=== PATIENT | female | born 1965 | race Caucasian/White ===

== ENCOUNTER 2023-02-03 13:47 | Inpatient (IN) | payer BC, OTHER ==
[~2023-02-03 13:47] MED LIST: CLINDAMYCIN 600 MG in DEXTROSE 5% IN WATER 50 ML IVPB SCH
--- NOTE | 2023-02-03 14:22 | ED ---
General Adult HPI - General Source: patient, RN notes reviewed Mode of arrival: ambulatory Limitations: no limitations <Tj Guerrero - Last Filed: 02/03/23 14:21> <Mauro Ta - Last Filed: 02/03/23 17:46> - General Stated complaint: swollen right side of lower jaw Time Seen by Provider: 02/03/23 14:21 - History of Present Illness Initial comments: 57-year-old female presents emergency Department chief complaint right-sided facial swelling, swelling in her submandibular region. She states has been increasing over the last several days. (Tj Guerrero) 7-year-old otherwise healthy female presenting to the ED with a chief complaint of facial swelling. Patient states approximately 2 weeks ago started to experience pain of her right lower face. States that she follow up with her dentist and was prescribed azithromycin. Despite taking this as prescribed, worsened symptoms and therefore presented to her dentist again who again prescribed her azithromycin. Despite 2 courses of azithromycin, patient reports increased redness, pain, swelling. Denies fever or chills. No chest pain or shortness of breath. No other complaints. (Mauro Ta) - Related Data Allergies Allergy/AdvReac Type Severity Reaction Status Date / Time Penicillins Allergy Rash/Hives Verified 02/03/23 14:11 Review of Systems ROS Other: All systems not noted in ROS Statement are negative. <Tj Guerrero - Last Filed: 02/03/23 14:21> ROS Other: All systems not noted in ROS Statement are negative. <Mauro Ta - Last Filed: 02/03/23 17:46> ROS Statement: Those systems with pertinent positive or pertinent negative responses have been documented in the HPI. Past Medical History Additional Past Medical History / Comment(s): DVT,PE,Migraine History of Any Multi-Drug Resistant Organisms: None Reported Past Surgical History: No Surgical Hx Reported Past Psychological History: No Psychological Hx Reported Smoking Status: Current every day smoker Past Alcohol Use History: None Reported Past Drug Use History: Marijuana <Tj Guerrero - Last Filed: 02/03/23 14:21> General Exam Limitations: no limitations <Tj Guerrero - Last Filed: 02/03/23 14:21> General appearance: alert, in no apparent distress ENT exam: Present: other (Warmth, erythema, edema, tenderness to palpation of the right face/cervical area. No stridor. Tolerating secretions.) Respiratory exam: Present: normal lung sounds bilaterally Cardiovascular Exam: Present: regular rate, normal rhythm GI/Abdominal exam: Present: soft Neurological exam: Present: alert, oriented X3 Skin exam: Present: warm, dry <Mauro Ta - Last Filed: 02/03/23 17:46> - General Exam Comments Initial Comments: Visual Physical Exam Vital signs reviewed General: Well-appearing, nontoxic, no acute distress. Head: Normocephalic, atraumatic Eyes: PERRLA, EOMI ENT: Airway patent right-sided facial swelling Chest: Nonlabored breathing Skin: No visual rash, normal skin tone Neuro: Alert and oriented 3 Musculoskeletal: No gross abnormalities (Tj Guerrero) Course Vital Signs 02/03/23 14:08 Temperature 98.8 F Pulse Rate 92 Respiratory 20 Rate Blood Pressure 150/86 O2 Sat by Pulse 99 Oximetry Medical Decision Making <Tj Guerrero - Last Filed: 02/03/23 14:21> - Lab Data Result diagrams: 02/03/23 14:35 02/03/23 14:35 <Mauro Ta - Last Filed: 02/03/23 17:46> - Medical Decision Making I completed the quick note portion of this chart signed Tj Guerrero PA-C (Tj Guerrero) Was pt. sent in by a medical professional or institution (LILLY Serra, SOCK LINING EXAMINER, urgent care, hospital, or care home...) When possible be specific @ -No Did you speak to anyone other than the patient for history (EMS, parent, family, police, friend...)? What history was obtained from this source @ -No Did you review nursing and triage notes (agree or disagree)? Why? @ -I reviewed and agree with nursing and triage notes Were old charts reviewed (outside hosp., previous admission, EMS record, old EKG, old radiological studies, urgent care reports/EKG's, care home records)? Report findings @ -No old charts were reviewed Differential Diagnosis (chest pain, altered mental status, abdominal pain women, abdominal pain men, vaginal bleeding, weakness, fever, dyspnea, syncope, headache, dizziness, GI bleed, back pain, seizure, CVA, palpatations, mental health, musculoskeletal)? @ -Fernie angina, ANUG, she'll cellulitis. This not meant to be an all- inclusive list. EKG interpreted by me (3pts min.). @ -None X-rays interpreted by me (1pt min.). @ -None done CT interpreted by me (1pt min.). @ -CT interpreted by me showing right-sided facial cellulitis with phlegmon. No definite abscess noted. U/S interpreted by me (1pt. min.). @ -None done What testing was considered but not performed or refused? (CT, X-rays, U/S, labs)? Why? @ -None What meds were considered but not given or refused? Why? @ -None Did you discuss the management of the patient with other professionals (professionals i.e. , PA, SOCK LINING EXAMINER, lab, RT, psych nurse, school social worker, bridge engineer, teacher, commissary officer, keycase assembler)? Give summary @ -Case discussed with Dr. Marrufo, who accepts admission and advised consult with OMFS. Case discussed with Dr. Negron, who is in agreement with plan of care. Kell sena will be out of town tomorrow and notes his partner will be able to take consult. Was smoking cessation discussed for >3mins.? @ -No Was critical care preformed (if so, how long)? @ -No Were there social determinants of health that impacted care today? How? (Homelessness, low income, unemployed, alcoholism, drug addiction, transportation, low edu. Level, literacy, decrease access to med. care, custodial, rehab)? @ -No Was there de-escalation of care discussed even if they declined (Discuss DNR or withdrawal of care, Hospice)? DNR status @ -No What co-morbidities impacted this encounter? (DM, HTN, Smoking, COPD, CAD, Cancer, CVA, ARF, Chemo, Hep., AIDS, mental health diagnosis, sleep apnea, morbid obesity)? @ -None Was patient admitted / discharged? Hospital course, mention meds given and route, prescriptions, significant lab abnormalities, going to OR and other pertinent info. @ -Admission 57-year-old female presents to the ED with complaints of facial swelling and pain. Laboratory studies significant for a white blood cell count of 15.4, neutrophils elevated at 11.6, chemistry panel unremarkable. CT did demonstrate a right facial cellulitis with phlegmon. Patient will be admitted for IV antibiotics with consult to OMFS and infectious disease. This time, vital signs stable with no evidence of sepsis. Plan of care discussed with patient who is in agreement. Undiagnosed new problem with uncertain prognosis? @ -No Drug Therapy requiring intensive monitoring for toxicity (Heparin, Nitro, Insu juan josé, Cardizem)? @ -No Were any procedures done? @ -No Diagnosis/symptom? @ -Facial cellulitis with phlegmon Acute, or Chronic, or Acute on Chronic? @ -Acute Uncomplicated (without systemic symptoms) or Complicated (systemic symptoms)? @ -Complicated Side effects of treatment? @ -No Exacerbation, Progression, or Severe Exacerbation? @ -No Poses a threat to life or bodily function? How? (Chest pain, [place], [place], pneumonia, PE, COPD, DKA, ARF, appy, cholecystitis, CVA, Diverticulitis, Homicidal, Suicidal, threat to staff... and all critical care pts) @ -Yes, facial cellulitis (Mauro Ta) - Lab Data Lab Results 02/03/23 02/03/23 Range/Units 14:35 14:35 WBC 15.4 H (3.8-10.6) k/uL RBC 4.78 (3.80-5.40) m/uL Hgb 14.1 (11.4-16.0) gm/dL Hct 42.3 (34.0-46.0) % MCV 88.4 (80.0-100.0) fL MCH 29.6 (25.0-35.0) pg MCHC 33.4 (31.0-37.0) g/dL RDW 13.2 (11.5-15.5) % Plt Count 336 (150-450) k/uL MPV 7.7 Neutrophils % 75 % Lymphocytes % 18 % Monocytes % 5 % Eosinophils % 1 % Basophils % 0 % Neutrophils # 11.6 H (1.3-7.7) k/uL Lymphocytes # 2.7 (1.0-4.8) k/uL Monocytes # 0.8 (0-1.0) k/uL Eosinophils # 0.2 (0-0.7) k/uL Basophils # 0.0 (0-0.2) k/uL Sodium 141 (137-145) mmol/L Potassium 3.8 (3.5-5.1) mmol/L Chloride 105 (98-107) mmol/L Carbon Dioxide 25 (22-30) mmol/L Anion Gap 11 mmol/L BUN 13 (7-17) mg/dL Creatinine 0.70 (0.52-1.04) mg/dL Est GFR (CKD-EPI)AfAm >90 (>60 ml/min/1.73 sqM) Est GFR (CKD-EPI)NonAf >90 (>60 ml/min/1.73 sqM) Glucose 117 H (74-99) mg/dL Calcium 9.6 (8.4-10.2) mg/dL Total Bilirubin 0.6 (0.2-1.3) mg/dL AST 30 (14-36) U/L ALT 31 (4-34) U/L Alkaline Phosphatase 81 (38-126) U/L Total Protein 7.3 (6.3-8.2) g/dL Albumin 4.2 (3.5-5.0) g/dL Disposition <Tj Guerrero - Last Filed: 02/03/23 14:21> Time of Disposition: 17:46 <Mauro Ta - Last Filed: 02/03/23 17:46> Clinical Impression: Facial cellulitis Disposition: ADMITTED IP TO THIS [facility] Condition: Good Referrals: Barbara He DO [Primary Care Provider] - 1-2 days
[2023-02-03 14:57] LABS: Basophils % (A) 0 %; Eosinophils # (A) 0.2 k/uL (0-0.7); Eosinophils % (A) 1 %; HCT 42.3 % (34.0-46.0); HGB 14.1 gm/dL (11.4-16.0); Lymphocytes # (A) 2.7 k/uL (1.0-4.8); Lymphocytes % (A) 18 %; MCH 29.6 pg (25.0-35.0); MCHC 33.4 g/dL (31.0-37.0); MCV 88.4 fL (80.0-100.0); Mean Platelet Volume 7.7; Monocytes # (A) 0.8 k/uL (0-1.0); Monocytes % (A) 5 %; Neutrophils # (A) 11.6 k/uL (1.3-7.7); Neutrophils % (A) 75 %; Platelet Count 336 k/uL (150-450); RBC 4.78 m/uL (3.80-5.40); RDW 13.2 % (11.5-15.5); WBC 15.4 k/uL (3.8-10.6)
[2023-02-03 15:09] LABS: ALT 31 U/L (4-34); African American GFR (CKD) >90 (>60 ml/min/1.73 sqM); Albumin 4.2 g/dL (3.5-5.0); Anion Gap 11 mmol/L; Blood Urea Nitrogen 13 mg/dL (7-17); Calcium 9.6 mg/dL (8.4-10.2); Carbon Dioxide 25 mmol/L (22-30); Chloride 105 mmol/L (98-107); Glucose 117 mg/dL (74-99); Non-African American GFR(CKD) >90 (>60 ml/min/1.73 sqM); Potassium 3.8 mmol/L (3.5-5.1); Sodium 141 mmol/L (137-145); Total Bilirubin 0.6 mg/dL (0.2-1.3); Total Protein 7.3 g/dL (6.3-8.2)
[2023-02-03 15:10] LABS: AST 30 U/L (14-36); Alkaline Phosphatase 81 U/L (38-126)
--- NOTE | 2023-02-03 15:37 | CT ---
EXAMINATION TYPE: CT soft tissue neck w con DATE OF EXAM: 02/03/2023 COMPARISON: None HISTORY: 57-year-old female with pain, infection, right lower jaw swelling and redness x2 weeks TECHNIQUE: Contiguous axial scanning of the soft tissues of the neck performed with IV Contrast, yissel ent injected with 100 mL of Isovue 300. Coronal/sagittal reconstructions performed. CT DLP: 398.1 mGycm Automated exposure control for dose reduction was used. FINDINGS: Marked soft tissue swelling overlying the right side of the anterior body of the mandible. There is o verlying low density collection measuring 2.7 cm wide by 1.0 cm thick by 1.9 cm craniocaudal. The patient is partially edentulous with dental amalgam and small dental caries scattered throughout but no large periapical lucency seen. Leftward nasal septal deviation. Orbits and globes are intact. Paranasal sinuses and mastoid air cells well pneumatized. Parotid gland, submandibular glands, and thyroid gland appear satisfactory. Mild to moderate bilateral lingual tonsillar hypertrophy. Additional moderate bilateral palatine tonsillar hypertrophy. Epiglottis and prevertebral soft tissues are satisfactory. Otherwise, glottic and subglottic structures as well as the tracheal column and visualized upper lung s are clear. Calcified granuloma right lung. Some asymmetrically larger right submandibular space lymph nodes measuring up to 9 mm some prominent right upper cervical lymph nodes measuring up to 1.3 cm. Bones: Status post C5-C6 ACDF. IMPRESSION: 1. PROMINENT SOFT TISSUE SWELLING OVERLYING THE RIGHT SIDE OF THE JAW WITH A POORLY DEFINED 2.7 X 1.0 X 1.9 CM LOW DENSITY COLLECTION OVERLYING THE ANTERIOR RIGHT BODY OF THE MANDIBLE SUGGESTIVE OF CELL ULITIS AND ASSOCIATED PHLEGMON. NO WELL-FORMED ABSCESS AT THIS TIME. 2. NO SIZABLE PERIAPICAL LUCENCY. THE PATIENT IS PARTIALLY EDENTULOUS WITH SCATTERED SMALL DENTAL CAR IES. 3. MODERATE HYPERTROPHY OF THE BILATERAL LINGUAL AND PALATINE TONSILS.
[2023-02-03] MEDS ORDERED: DEXAMETHASONE SOD PHOSPHATE 10 MG/ML 1 ML VIAL IVP STA (17:28)
[2023-02-03] MEDS ORDERED: KETOROLAC 15 MG/ML 1 ML VIAL IVP STA (17:28)
[2023-02-03] MEDS ORDERED: CLINDAMYCIN 600 MG in DEXTROSE 5% IN WATER 50 ML IVPB STA ×2 (17:30)
[2023-02-03] MEDS ORDERED: ACETAMINOPHEN TAB 325 MG TAB PO PRN (17:37)
[2023-02-03] MEDS ORDERED: NALOXONE 0.4 MG/ML 1 ML VIAL IV PRN (17:37)
[2023-02-03] MEDS ORDERED: ONDANSETRON 4 MG/2 ML VIAL IVP PRN (17:37)
[2023-02-03] MEDS ORDERED: NON FORMULARY DRUG (Ubrogepant [Ubrelvy] 100 MG Tablet) PO PRN (20:17)
[2023-02-03] MEDS ORDERED: SUMAtriptan succinate 50 MG TAB PO PRN (20:17)
[2023-02-03] MEDS: GABAPENTIN 300 MG CAP PO SCH (21:01)
[2023-02-03] MEDS: ALPRAZolam 0.25 MG TAB PO SCH (21:01)
[2023-02-03] MEDS: VENLAFAXINE HCL ER 75 MG CAP PO SCH (21:01)
[2023-02-03] MEDS: NAPROXEN 250 MG TAB PO SCH (21:02)
[2023-02-03] MEDS: AMITRIPTYLINE HCL 25 MG TAB PO SCH (21:02)
[2023-02-03] MEDS: PANTOPRAZOLE 40 MG TABLET PO SCH ×2 (21:02→21:04)
[2023-02-03] MEDS: ASPIRIN 81 MG PO SCH (21:02)
[2023-02-03] MEDS: HYDROmorphone 0.5 MG/0.5 ML SYRINGE IVP PRN (21:03)
[2023-02-03] MEDS: ENOXAPARIN 40 MG/0.4 ML SYRINGE SQ SCH (21:04)
[2023-02-03] MEDS: SODIUM CHLORIDE 0.9% 1,000 ML IV SCH (21:05)
[2023-02-03] MEDS: ATORVASTATIN 20 MG TAB PO SCH (21:05)
[2023-02-03] MEDS: NICOTINE 21MG/24HR PATCH TRANSDERM SCH (22:23)
[2023-02-04] MEDS: HYDROmorphone 1 MG/ML 1 ML SYRINGE IVP PRN ×5 (01:42→20:28)
[2023-02-04] MEDS: CLINDAMYCIN 600 MG in DEXTROSE 5% IN WATER 50 ML IVPB SCH ×4 (01:42→09:36)
[2023-02-04] MEDS: SODIUM CHLORIDE 0.9% 1,000 ML IV SCH ×3 (07:00→16:01)
[2023-02-04] MEDS: NAPROXEN 250 MG TAB PO SCH ×3 (08:30→22:03)
[2023-02-04] MEDS: ALPRAZolam 0.25 MG TAB PO SCH ×2 (08:30→22:03)
[2023-02-04] MEDS: ENOXAPARIN 40 MG/0.4 ML SYRINGE SQ SCH (08:33)
[2023-02-04] MEDS: NICOTINE 21MG/24HR PATCH TRANSDERM SCH (08:33)
[2023-02-04 11:00] LABS: Basophils # (A) 0.01 X 10*3/uL (0.00-0.10); Basophils % (A) 0.1 %; Eosinophils # (A) 0 X 10*3/uL (0.04-0.35); Eosinophils % (A) 0 %; HCT 42.2 % (37.2-46.3); HGB 13.8 d/dL (12.0-15.0); Lymphocytes # (A) 1.03 X 10*3/uL (0.90-5.00); Lymphocytes % (A) 7.9 %; MCHC 32.7 d/dL (32.0-37.0); MCV 88.7 FL (80.0-97.0); Mean Platelet Volume 9.8 FL (9.5-12.2); Monocytes # (A) 0.28 X 10*3/uL (0.20-1.00); Monocytes % (A) 2.2 %; NRBC Per 100 WBC 0 X 10*3/uL (0.00-0.01); Neutrophils # (A) 11.58 X 10*3/uL (1.80-7.70); Neutrophils % (A) 89.3 %; Platelet Count 350 X 10*3/uL (140-440); RBC 4.76 X 10*6/uL (4.10-5.20); RDW 13.2 % (11.5-14.5); WBC 12.96 X 10*3/uL (4.50-10.00)
[2023-02-04] MEDS ORDERED: CALCIUM CARBONATE 500 MG CHEWABLE PO PRN (12:10)
[2023-02-04] MEDS ORDERED: LACTULOSE 20 GM/30 ML CUP PO PRN (12:10)
[2023-02-04] MEDS ORDERED: NICOTINE 21MG/24HR PATCH TRANSDERM SCH (12:15)
[2023-02-04] MEDS ORDERED: CLINDAMYCIN 900 MG in DEXTROSE 5% IN WATER 50 ML IVPB SCH ×2 (13:00)
[2023-02-04] MEDS: CLINDAMYCIN 900 MG in DEXTROSE 5% IN WATER 50 ML IVPB SCH ×2 (13:43)
--- NOTE | 2023-02-04 18:13 | P.HPIM ---
History of Present Illness H&P Date: 02/04/23 Chief Complaint: Right facial swelling Pleasant 57-year-old patient who follows with Dr. Barbara He. Chronic stable medical conditions include depression, GERD, chronic neck pain, insomnia, hyperlipidemia, migraines. Prior pulmonary embolism, finished a course of eliquis. On aspirin A 2 weeks ago and started noticing swelling on the right side of the face around the jawline. Progressively became worse. Went to see her dentist. Was given a Z-Daryn. Did not improve. Went back again was again given a Z-Daryn. Then she went to see maxillofacial surgeon yesterday. Was sent into the ER. Denies any fever and chills. Was having some trouble eating. ID and maxillofacial surgery surgery was consulted from the ER. Started on IV clindamycin. This morning some improvement in his swelling. Patient does request regular food. Review of systems: GEN.: Tired EYES: None HEENT: None NECK: As above RESPIRATORY: None CARDIOVASCULAR: None GASTROINTESTINAL: None GENITOURINARY: None MUSCULOSKELETAL: None LYMPHATICS: None HEMATOLOGICAL: None PSYCHIATRY: None NEUROLOGICAL: Chronic back pain, with slight weakness of the right arm following surgery Past medical history to include: Depression, GERD, chronic neck pain with prior surgery, insomnia, hyperlipidemia, migraines, pulmonary embolism currently on aspirin with a prior course of eliquis. Social history: Works at the [employer]. Lives alone. No alcohol. Smokes a pack a day for last 40 years. Physical examination: VITAL SIGNS: 98.8, 92, 20, 129/85, 97% room air GENERAL: BMI 74.1, declining with awake not in distress. EYES: Pupils equal. Conjunctiva normal. HEENT: External appearance of nose and ears normal, oral cavity grossly normal. Swelling around the right to in the submandibular area. Tender. NECK: JVD not raised; masses not palpable. HEART: First and second heart sounds are normal; no edema. LUNGS: Respiratory rate normal; decreased breath sounds. ABDOMEN: Soft, nontender, liver spleen not palpable, no masses palpable. PSYCH: Alert and oriented x3; mood and affect normal. MUSCULOSKELETAL:No Clubbing/cyanosis;muscles-grossly intact NEUROLOGICAL: Cranial nerves grossly intact; no facial asymmetry, power and sensation grossly intact. LYMPHATICS: No lymph nodes palpable in the axilla and neck INVESTIGATIONS, reviewed in the clinical context: February 04: White count 12.9 hemoglobin 13.8 platelets 350 February 03: White count 15.4 hemoglobin 14.1. History 36 potassium 3.8 creatinine 0.[address]: Soft tissue swelling overlying the right side of the jaw with a poorly defined 2.7 x 1 cm x 1.9 cm low density collection overlying the anterior right body of the mandible with cellulitis and phlegmon. Scattered small dental kidney disease. Moderate hypertrophic the bilateral leg: [place] tonsils. Assessment and plan: -Cellulitis and phlegmon to the anterior part of the right mandible. Patient has failed outpatient treatment with Z-Daryn 2 courses. Also is affecting patient is eating. ID and maxillofacial surgery surgery consulted. IV clindamycin IV ceftriaxone. Soft diet -COPD in a current smoker Albuterol when necessary -Chronic nicotine dependence, cigarette smoker Nicotine patch. -Depression otherwise specified Effexor XL 25 mg by mouth daily at bedtime -GERD PPI -Chronic neck pain from prior cervical spine surgery and neck injections. Tylenol 3. Neurontin. -Hyperlipidemia Lipitor 20 mg -Migraines Imitrex when necessary.ubrelvy, when necessary Soft diet. IV clindamycin IV ceftriaxone. Follow with consultants. Past Medical History Additional Past Medical History / Comment(s): DVT,PE,Migraine History of Any Multi-Drug Resistant Organisms: None Reported Past Surgical History: No Surgical Hx Reported Past Psychological History: No Psychological Hx Reported Smoking Status: Current every day smoker Past Alcohol Use History: None Reported Past Drug Use History: Marijuana Medications and Allergies Home Medications Medication Instructions Recorded Confirmed Type ALPRAZolam [Xanax] 0.25 mg PO BID 02/03/23 02/03/23 History Acetaminophen Tab [Tylenol Tab] 500 mg PO Q6HR PRN 02/03/23 02/03/23 History Acetaminophen-Codeine 300-30mg 1 tab PO Q6H PRN 02/03/23 02/03/23 History [Tylenol w/codeine #3] Amitriptyline HCl [Elavil] 75 mg PO HS 02/03/23 02/03/23 History Aspirin EC [Ecotrin Low Dose] 81 mg PO HS 02/03/23 02/03/23 History Atorvastatin [Lipitor] 20 mg PO HS 02/03/23 02/03/23 History Gabapentin 600 mg PO HS 02/03/23 02/03/23 History Ibuprofen [Motrin] 800 mg PO TID PRN 02/03/23 02/03/23 History Omeprazole 40 mg PO HS 02/03/23 02/03/23 History SUMAtriptan succinate [Imitrex] 100 mg PO BID PRN 02/03/23 02/03/23 History Ubrogepant [Ubrelvy] 100 mg PO DAILY PRN 02/03/23 02/03/23 History Venlafaxine HCl [Effexor XR] 225 mg PO HS 02/03/23 02/03/23 History Allergies Allergy/AdvReac Type Severity Reaction Status Date / Time Penicillins Allergy Rash/Hives Verified 02/03/23 18:24 Physical Exam Vitals: Vital Signs Temp Pulse Pulse Resp BP BP Pulse Ox 02/04/23 16:52 97.7 F 87 20 140/93 96 02/04/23 15:00 98.0 F 94 16 155/94 96 02/04/23 14:30 98.9 F 79 17 122/79 96 02/04/23 10:00 98.8 F 92 18 141/83 95 02/04/23 09:30 87 20 122/63 96 02/04/23 08:41 88 20 140/92 96 02/04/23 06:38 80 18 122/82 99 02/04/23 02:56 98.6 F 84 18 128/86 98 02/03/23 18:49 98.6 F 77 18 129/85 97 Intake and Output 02/04/23 02/04/23 02/04/23 06:59 14:59 22:59 Other: Weight 202 kg Results CBC & Chem 7: 02/04/23 07:28 02/03/23 14:35 Labs: Abnormal Lab Results - Last 24 Hours (Table) 02/04/23 Range/Units 07:28 WBC 12.96 H (4.50-10.00) X 10*3/uL Neutrophils # 11.58 H (1.80-7.70) X 10*3/uL Eosinophils # 0 L (0.04-0.35) X 10*3/uL
[2023-02-04] MEDS: ASPIRIN 81 MG PO SCH (22:03)
[2023-02-04] MEDS: VENLAFAXINE HCL ER 75 MG CAP PO SCH (22:03)
[2023-02-04] MEDS: KETOROLAC 15 MG/ML 1 ML VIAL IVP PRN (22:04)
[2023-02-04] MEDS: ATORVASTATIN 20 MG TAB PO SCH (22:04)
[2023-02-04] MEDS: AMITRIPTYLINE HCL 25 MG TAB PO SCH (22:19)
[2023-02-04] MEDS: GABAPENTIN 300 MG CAP PO SCH (22:19)
--- NOTE | 2023-02-04 22:39 | P.CONS ---
History of Present Illness - Reason for Consult Consult date: 02/04/23 Facial cellulitis with phlegmon Requesting physician: Mauro Ta - Chief Complaint Right-sided facial and neck swelling and pain x days - History of Present Illness Patient is a 57-year-old female with a past medical history significant for DVT PE current everyday smoker history of recurrent dental infection presenting to the hospital for evaluation of right-sided facial swelling and pain the patient symptom has been going on over the last few days with initial symptoms started about 2 weeks ago patient did follow-up with her dentist who have given her Z-Daryn x2 however the patient did not have improvement, patient presented with increasing pain swelling redness to the right lower jaw and right side of the face patient describes the pain to be sharp intense is almost 10 out of 10 without any radiation with associated swelling redness did not have any drainage, with the symptom the patient has been evaluated by the ER physician on presentation to the hospital the patient was afebrile and no fever has been recorded subsequently patient did have a white count of 15.4 with a left shift creatinine was 0.70 liver enzymes are normal patient did have a soft tissue CT of the neck prominent soft tissue swelling overlying the right side of the jaw with a poorly defined low-density collection suggestive of cellulitis and associated phlegmon patient was started on clindamycin because of her penicillin allergy infectious disease was consulted for further management of antibiotic therapy Review of Systems Positive point and negatives has been mentioned in the HPI, complete review of systems was performed and all other systems are negative Past Medical History Additional Past Medical History / Comment(s): DVT,PE,Migraine History of Any Multi-Drug Resistant Organisms: None Reported Past Surgical History: No Surgical Hx Reported Past Psychological History: No Psychological Hx Reported Smoking Status: Current every day smoker Past Alcohol Use History: None Reported Past Drug Use History: Marijuana Medications and Allergies Home Medications Medication Instructions Recorded Confirmed Type ALPRAZolam [Xanax] 0.25 mg PO BID 02/03/23 02/03/23 History Acetaminophen Tab [Tylenol] 500 mg PO Q6HR PRN 02/03/23 02/03/23 History Amitriptyline HCl [Elavil] 75 mg PO HS 02/03/23 02/03/23 History Aspirin EC [Ecotrin Low Dose] 81 mg PO HS 02/03/23 02/03/23 History Atorvastatin [Lipitor] 20 mg PO HS 02/03/23 02/03/23 History Gabapentin 600 mg PO HS 02/03/23 02/03/23 History Ibuprofen [Motrin] 800 mg PO TID PRN 02/03/23 02/03/23 History Omeprazole 40 mg PO HS 02/03/23 02/03/23 History SUMAtriptan succinate [Imitrex] 100 mg PO BID PRN 02/03/23 02/03/23 History Ubrogepant [Ubrelvy] 100 mg PO DAILY PRN 02/03/23 02/03/23 History Venlafaxine HCl [Effexor XR] 225 mg PO HS 02/03/23 02/03/23 History Acetaminophen-Codeine 300-30mg 1 tab PO Q6H PRN #10 tab 02/08/23 Rx [Tylenol w/codeine #3] Fluconazole [Diflucan] 150 mg PO DAILY #3 tab 02/08/23 Rx cefUROXime axetiL [Ceftin] 500 mg PO BID 10 Days #20 tab 02/08/23 Rx metroNIDAZOLE [Flagyl] 500 mg PO TID 10 Days #30 tab 02/08/23 Rx Allergies Allergy/AdvReac Type Severity Reaction Status Date / Time Penicillins Allergy Rash/Hives Verified 02/03/23 18:24 Physical Exam Vitals: Vital Signs Temp Pulse Resp BP Pulse Ox 02/04/23 10:00 98.8 F 92 18 141/83 95 02/04/23 09:30 87 20 122/63 96 02/04/23 08:41 88 20 140/92 96 02/04/23 06:38 80 18 122/82 99 02/04/23 02:56 98.6 F 84 18 128/86 98 02/03/23 18:49 98.6 F 77 18 129/85 97 02/03/23 14:08 98.8 F 92 20 150/86 99 GENERAL DESCRIPTION: Middle-aged female lying in bed, no distress. No tachypnea or accessory muscle of respiration use. HEENT: Shows Pallor , no scleral icterus. Oral mucous membrane is dry. NECK: Trachea central, significant swelling and redness of the right lower jaw and neck area which is warm and tender to touch LUNGS: Unlabored breathing. Clear to auscultation anteriorly. No wheeze or crackle. HEART: S1, S2, regular rate and rhythm. No loud murmur ABDOMEN: Soft, no tenderness , guarding or rigidity, no organomegaly EXTREMITIES: No edema of feet. SKIN: No rash, no masses palpable. NEUROLOGICAL: The patient is awake, alert, oriented x3, mood and affect normal. Results CBC & Chem 7: 02/07/23 05:49 02/07/23 05:49 Labs: Abnormal Lab Results - Last 24 Hours (Table) 02/03/23 02/03/23 Range/Units 14:35 14:35 WBC 15.4 H (3.8-10.6) k/uL Neutrophils # 11.6 H (1.3-7.7) k/uL Glucose 117 H (74-99) mg/dL Assessment and Plan (1) Facial cellulitis Status: Acute Code(s): L03.211 - CELLULITIS OF FACE SNOMED Code(s): 069883438 Plan: 1patient presented to hospital with increasing pain swelling redness to the right side of the jaw failing outpatient oral Zithromax therapy likely related to underlying lower jaw infected tooth and secondary cellulitis and will need to cover for the polymicrobial naeem associated with his infection 2-penicillin allergy that will limit the number of antibiotics safe to use 3-we will increase the dose of clindamycin to 900 mg every 8 hours and add Rocephin 2 g daily We will follow on clinical condition and cultures to further adjust medication if needed Thank you for this consultation we will follow the patient along with you Dictation was produced using [employer] dictation software. please excuse any grammatical, word or spelling errors. Time with Patient: Greater than 30
[2023-02-05] MEDS: HYDROmorphone 1 MG/ML 1 ML SYRINGE IVP PRN ×5 (00:02→14:41)
[2023-02-05] MEDS: SODIUM CHLORIDE 0.9% 1,000 ML IV SCH ×2 (00:03→14:43)
[2023-02-05] MEDS: CLINDAMYCIN 900 MG in DEXTROSE 5% IN WATER 50 ML IVPB SCH ×8 (00:03→23:13)
[2023-02-05] MEDS: KETOROLAC 15 MG/ML 1 ML VIAL IVP PRN ×2 (06:56→12:07)
[2023-02-05] MEDS: ENOXAPARIN 40 MG/0.4 ML SYRINGE SQ SCH (07:58)
[2023-02-05] MEDS: NAPROXEN 250 MG TAB PO SCH ×3 (07:58→20:06)
[2023-02-05] MEDS: ALPRAZolam 0.25 MG TAB PO SCH ×2 (07:58→20:06)
[2023-02-05] MEDS: NICOTINE 21MG/24HR PATCH TRANSDERM SCH (08:02)
--- NOTE | 2023-02-05 15:14 | P.PN ---
Subjective Progress Note Date: 02/05/23 Principal diagnosis: Right lower jaw infection and facial cellulitis Patient is a 57-year-old female with a past medical history significant for DVT PE current everyday smoker history of recurrent dental infection presenting to the hospital for evaluation of right-sided facial swelling and pain , failing outpatient oral Zithromax therapy CT did show some soft tissue swelling and some low density fluid collection On today's evaluation that is 02/05/2023, the patient denies any fever or any chills , the patient is breathing comfortably on room air and no need for parra pplemental oxygen, the patient denies any chest pain or cough and no sputum production, patient still complaining of significant pain to the right side of the jaw and the facial area and wants more pain medication Patient white count of 12.96 as of yesterdayhe was done today Objective - Vital Signs Vital signs: Vital Signs Temp 98.1 F 02/05/23 07:00 Pulse 80 02/05/23 07:00 Resp 20 02/05/23 08:00 BP 153/95 02/05/23 07:00 Pulse Ox 97 02/05/23 07:00 FiO2 Intake & Output 02/04/23 02/05/23 02/05/23 18:59 06:59 18:59 Weight 202 kg Other: Voiding Method Toilet Toilet # Voids 2 - Exam GENERAL DESCRIPTION: A middle-aged female lying in bed in no distress HEENT: Right lower jaw with swelling redness and tenderness RESPIRATORY SYSTEM: Unlabored breathing , clear to auscultation anteriorly HEART: S1 S2 regular rate and rhythm , ABDOMEN: Soft , no tenderness EXTREMITIES: No edema feet - Labs CBC & Chem 7: 02/04/23 07:28 02/03/23 14:35 Labs: Abnormal Lab Results - Last 24 Hours (Table) 02/04/23 Range/Units 07:28 WBC 12.96 H (4.50-10.00) X 10*3/uL Neutrophils # 11.58 H (1.80-7.70) X 10*3/uL Eosinophils # 0 L (0.04-0.35) X 10*3/uL Microbiology - Last 24 Hours (Table) 02/03/23 18:13 Blood Culture - Preliminary Blood 02/03/23 18:30 Blood Culture - Preliminary Blood Assessment and Plan (1) Penicillin allergy Current Visit: Yes Status: Acute Code(s): Z88.0 - ALLERGY STATUS TO REGAN LOGAN SNOMED Code(s): 62749808 (2) Facial cellulitis Current Visit: Yes Status: Acute Code(s): L03.211 - CELLULITIS OF FACE SNOMED Code(s): 743731139 Plan: 1patient presented to hospital with increasing pain swelling redness to the right side of the jaw failing outpatient oral Zithromax therapy likely related to underlying lower jaw infected tooth and secondary cellulitis and will need to cover for the polymicrobial naeem associated with his infection 2-penicillin allergy that will limit the number of antibiotics safe to use 3-await dental surgery evaluation and possible drainage of that ill-defined fluid collection should be sent for the culture 3-patient to continue with clindamycin to 900 mg every 8 hours and Rocephin 2 g daily, monitor clinical course closely Dictation was produced using ME911 dictation software. please excuse any grammatical, word or spelling errors. Time with Patient: Less than 30
[2023-02-05] MEDS: HYDROmorphone 0.5 MG/0.5 ML SYRINGE IVP PRN ×4 (16:55→23:12)
[2023-02-05] MEDS: AMITRIPTYLINE HCL 25 MG TAB PO SCH (20:05)
[2023-02-05] MEDS: VENLAFAXINE HCL ER 75 MG CAP PO SCH (20:05)
[2023-02-05] MEDS: PANTOPRAZOLE 40 MG TABLET PO SCH (20:06)
[2023-02-05] MEDS: ASPIRIN 81 MG PO SCH (20:06)
[2023-02-05] MEDS: GABAPENTIN 300 MG CAP PO SCH (20:06)
[2023-02-05] MEDS: ATORVASTATIN 20 MG TAB PO SCH (20:06)
--- NOTE | 2023-02-05 22:59 | P.PN ---
Progress Note - Text Progress Note Date: 02/05/23 Chief Complaint: Right facial swelling Pleasant 57-year-old patient who follows with Dr. Barbara He. Chronic stable medical conditions include depression, GERD, chronic neck pain, insomnia, hyperlipidemia, migraines. Prior pulmonary embolism, finished a course of jeronimo bk. On aspirin A 2 weeks ago and started noticing swelling on the right side of the face around the jawline. Progressively became worse. Went to see her dentist. Was given a Z-Daryn. Did not improve. Went back again was again given a Z-Daryn. Then she went to see maxillofacial surgeon yesterday. Was sent into the ER. Denies any fever and chills. Was having some trouble eating. ID and maxillofacial surgery surgery was consulted from the ER. Started on IV clindamycin. This morning some improvement in his swelling. Patient does request regular food. February 05: Worsening pain swelling on the right side of the face below the jaw. Patient does of Dilaudid increased from 1 mg every 3-1.5 mg every 3. Patient continues on IV clindamycin and ceftriaxone. Able to swallow. Spoke to Dr. Easley from [facility]-he'll evaluate the patient later today. Active Medications Acetaminophen (Acetaminophen Tab 325 Mg Tab) 650 mg PO Q6HR PRN PRN Reason: Mild Pain or Fever > 100.5 Acetaminophen/Codeine Phosphate (Acetaminophen-Codeine 300-30mg Tab) 1 each PO Q6H PRN PRN Reason: Pain Alprazolam (Alprazolam 0.25 Mg Tab) 0.25 mg PO BID [facility] Last Admin: 02/05/23 20:06 Dose: 0.25 mg Amitriptyline HCl (Amitriptyline Hcl 25 Mg Tab) 75 mg PO [facility] Last Admin: 02/05/23 20:05 Dose: 75 mg Aspirin (Aspirin 81 Mg) 81 mg PO [facility] Last Admin: 02/05/23 20:06 Dose: 81 mg Atorvastatin Calcium (Atorvastatin 20 Mg Tab) 20 mg PO [facility] Last Admin: 02/05/23 20:06 Dose: 20 mg Calcium Carbonate/Glycine (Calcium Carbonate 500 Mg Chewable) 1,000 mg PO Q4HR PRN PRN Reason: Dyspepsia Enoxaparin Sodium (Enoxaparin 40 Mg/0.4 Ml Syringe) 40 mg SQ DAILY [facility] Last Admin: 02/05/23 07:58 Dose: 40 mg Gabapentin (Gabapentin 300 Mg Cap) 600 mg PO HS [facility] Last Admin: 02/05/23 20:06 Dose: 600 mg Hydromorphone HCl (Hydromorphone 0.5 Mg/0.5 Ml Syringe) 0.5 mg IVP Q3HR PRN PRN Reason: Moderate Pain (Scale 4 to 6) Last Admin: 02/05/23 16:55 Dose: 0.5 mg Hydromorphone HCl (Hydromorphone 0.5 Mg/0.5 Ml Syringe) 1.5 mg IVP Q3HR PRN PRN Reason: Severe Pain (Scale 7 to 10) Last Admin: 02/05/23 20:10 Dose: 1.5 mg Sodium Chloride (Saline 0.9%) 1,000 mls @ 75 mls/hr IV .[id number] [facility] Last Admin: 02/05/23 14:43 Dose: 75 mls/hr Ceftriaxone Sodium 2 gm/ (Sodium Chloride) 50 mls @ 100 mls/hr IVPB Q24HR [facility]; Protocol Last Admin: 02/05/23 08:02 Dose: 100 mls/hr Clindamycin Phosphate 900 mg/ (Dextrose/Water) 56 mls @ 50 mls/hr IVPB Q8H [facility]; Protocol Last Admin: 02/05/23 14:41 Dose: 50 mls/hr Ketorolac Tromethamine (Ketorolac 15 Mg/Ml 1 Ml Vial) 15 mg IVP Q6HR PRN PRN Reason: Moderate Pain (Scale 4 to 6) Stop: 02/06/23 17:43 Last Admin: 02/05/23 12:07 Dose: 15 mg Lactulose (Lactulose 20 Gm/30 Ml Cup) 20 gm PO DAILY PRN PRN Reason: Constipation Naloxone HCl (Naloxone 0.4 Mg/Ml 1 Ml Vial) 0.2 mg IV Q2M PRN PRN Reason: Opioid Reversal Naproxen (Naproxen 250 Mg Tab) 250 mg PO TID [facility] Last Admin: 02/05/23 20:06 Dose: 250 mg Nicotine (Nicotine 21mg/24hr Patch) 1 patch TRANSDERM DAILY [facility] Last Admin: 02/05/23 08:02 Dose: 1 patch Non-Formulary Medication (Ubrogepant [Ubrelvy]) 100 mg PO DAILY PRN PRN Reason: Migraine Headache Ondansetron HCl (Ondansetron 4 Mg/2 Ml Vial) 4 mg IVP Q8HR PRN PRN Reason: Nausea And Vomiting Pantoprazole Sodium (Pantoprazole 40 Mg Tablet) 40 mg PO [facility] Last Admin: 02/05/23 20:06 Dose: 40 mg Sumatriptan Succinate (Sumatriptan Succinate 50 Mg Tab) 100 mg PO BID PRN PRN Reason: Migraine Headache Venlafaxine HCl (Venlafaxine Hcl Er 75 Mg Cap) 225 mg PO [facility] Last Admin: 02/05/23 20:05 Dose: 225 mg Past medical history to include: Depression, GERD, chronic neck pain with prior surgery, insomnia, hyperlipidemia, migraines, pulmonary embolism currently on aspirin with a prior course of eliquis. Social history: Works at the [employer]. Lives alone. No alcohol. Smokes a pack a day for last 40 years. Physical examination: VITAL SIGNS: 98.2, 74, 20, 153/98, 94% room air GENERAL: Laying in bed, but uncomfortable EYES: Pupils equal. Conjunctiva normal. HEENT: External appearance of nose and ears normal, oral cavity grossly normal. Swelling around the right to in the submandibular area. Tender. Consult worsening NECK: JVD not raised; masses not palpable. HEART: First and second heart sounds are normal; no edema. LUNGS: Respiratory rate normal; decreased breath sounds. ABDOMEN: Soft, nontender, liver spleen not palpable, no masses palpable. PSYCH: Alert and oriented x3; mood and affect normal. MUSCULOSKELETAL:No Clubbing/cyanosis;muscles-grossly intact INVESTIGATIONS, reviewed in the clinical context: Procalcitonin less than 0.02 February 04: White count 12.9 hemoglobin 13.8 platelets 350 February 03: White count 15.4 hemoglobin 14.1. History 36 potassium 3.8 creatinine 0.[address]: Soft tissue swelling overlying the right side of the jaw with a poorly defined 2.7 x 1 cm x 1.9 cm low density collection overlying the anterior right body of the mandible with cellulitis and phlegmon. Scattered small dental kidney disease. Moderate hypertrophic the bilateral leg: Cambria tonsils. Assessment and plan: -Cellulitis and phlegmon to the anterior part of the right mandible. Patient has failed outpatient treatment with Z-Daryn 2 courses. Able to swallow.: Subclinical worsening ID and maxillofacial surgery surgery consulted. Spoke to Dr. Easley. He lives with the patient later today. IV clindamycin IV ceftriaxone. Soft diet -COPD in a current smoker Albuterol when necessary -Chronic nicotine dependence, cigarette smoker Nicotine patch. -Depression otherwise specified Effexor XL 25 mg by mouth daily at bedtime -GERD PPI -Chronic neck pain from prior cervical spine surgery and neck injections. Tylenol 3. Neurontin. -Hyperlipidemia Lipitor 20 mg -Migraines Imitrex when necessary.ubrelvy, when necessary Soft diet. IV clindamycin IV ceftriaxone. Dr. Easley will see the patient later today. Increase dose of Dilaudid.
--- NOTE | 2023-02-05 23:19 | P.GSCN ---
History of Present Illness Consult date: 02/05/23 Reason for Consult: poorly defined low-density collection suggestive of cellulitis and associated phlegmon Right Jaw Requesting physician: Gil Marrufo History of present illness: 57-year-old female past medical history for DVT and pulmonary embolism presented to emergency room with recurrent dental infection she had right sided facial swelling and pain she reported it had been present for approximately 3 weeks whe re she had seen her dentist twice for outpatient therapy and she reported getting his Z-Daryn twice. This did not work according to the patient and she recently presented to the [facility] ER. Has been on Rocephin and clindamycin as an inpatient reports the right jaw still hurts. She feels the swelling is not improving. Patient does report numbness of the lower lip and chin. Review of Systems CC HPI Past Medical History Additional Past Medical History / Comment(s): DVT,PE,Migraine History of Any Multi-Drug Resistant Organisms: None Reported Past Surgical History: No Surgical Hx Reported Past Psychological History: No Psychological Hx Reported Smoking Status: Current every day smoker Past Alcohol Use History: None Reported Past Drug Use History: Marijuana Medications and Allergies Home Medications Medication Instructions Recorded Confirmed Type ALPRAZolam [Xanax] 0.25 mg PO BID 02/03/23 02/03/23 History Acetaminophen Tab [Tylenol Tab] 500 mg PO Q6HR PRN 02/03/23 02/03/23 History Acetaminophen-Codeine 300-30mg 1 tab PO Q6H PRN 02/03/23 02/03/23 History [Tylenol w/codeine #3] Amitriptyline HCl [Elavil] 75 mg PO HS 02/03/23 02/03/23 History Aspirin EC [Ecotrin Low Dose] 81 mg PO HS 02/03/23 02/03/23 History Atorvastatin [Lipitor] 20 mg PO HS 02/03/23 02/03/23 History Gabapentin 600 mg PO HS 02/03/23 02/03/23 History Ibuprofen [Motrin] 800 mg PO TID PRN 02/03/23 02/03/23 History Omeprazole 40 mg PO HS 02/03/23 02/03/23 History SUMAtriptan succinate [Imitrex] 100 mg PO BID PRN 02/03/23 02/03/23 History Ubrogepant [Ubrelvy] 100 mg PO DAILY PRN 02/03/23 02/03/23 History Venlafaxine HCl [Effexor XR] 225 mg PO HS 02/03/23 02/03/23 History Allergies Allergy/AdvReac Type Severity Reaction Status Date / Time Penicillins Allergy Rash/Hives Verified 02/03/23 18:24 Surgical - Exam Vital Signs Temp Pulse Resp BP Pulse Ox 98.8 F 92 20 150/86 99 02/03/23 14:08 02/03/23 14:08 02/03/23 14:08 02/03/23 14:08 02/03/23 14:08 Obese patient sitting in bed easily arousable alert and oriented 3. Able to get up and walk to the bathroom and back without difficulty. Does have facial swelling of the right mandible Mclaughlin to be centered around the tooth #27 or 28. The patient does not report tooth pain but does have significant pain of her chin and lip in the area when palpated. Chin and lip feel hard to the touch with associated swelling extending 2 cm either side of the parasymphysis of the jaw. Patient's able to open her mouth floor the mouth is not elevated posterior pharynx is not involved. Vestibular swelling proceeded with tooth numbers 27 and 28 is significant and upon retraction approximate 2 mL of yellow pus is expressed. This pus was collected for culture and patient has to get up and limits her mouth which she did. No further pus could be expressed due to discomfort. Results - Labs 02/04/23 07:28 02/03/23 14:35 Microbiology - Last 24 Hours (Table) 02/03/23 18:13 Blood Culture - Preliminary Blood 02/03/23 18:30 Blood Culture - Preliminary Blood - Imaging Comments: Next CT reviewed no drainable abscess noted Assessment and Plan Assessment: Cellulitis associated with the right mandible parasymphysis Hypoesthesia associated with the mandibular nerve Plan: Cellulitis associated with the right mandible is most likely related to the premolar tooth #28 but possibly #27 due to the pus expression coming from the vestibule in this area. The patient desires extraction of all of her teeth but especially #27 and 28. Suspect the patient's discomfort is influencing this decision and recommended only extracting the worst of the teeth which might be #27 28 and not all of her teeth. Was able to collect some purulent drainage which may help guide antibiotic therapy. Recommend patient be nothing by mouth for the possibility of adding on the patient in the afternoon tomorrow if her swelling continues to worsen. Would recommend a course of steroids and heat on the side of her face to help soften the swelling and possibly give her some relief from the pain as well as the nerve compression from the infection. Time with Patient: Less than 30
[2023-02-05] MEDS: DEXAMETHASONE SOD PHOSPHATE 4 MG/ML 1 ML VIAL IVP SCH (23:38)
[2023-02-06] MEDS: HYDROmorphone 0.5 MG/0.5 ML SYRINGE IVP PRN ×6 (03:33→23:18)
[2023-02-06] MEDS: SODIUM CHLORIDE 0.9% 1,000 ML IV SCH ×2 (03:36→21:42)
[2023-02-06] MEDS: DEXAMETHASONE SOD PHOSPHATE 4 MG/ML 1 ML VIAL IVP SCH ×4 (06:38→23:18)
[2023-02-06] MEDS: CLINDAMYCIN 900 MG in DEXTROSE 5% IN WATER 50 ML IVPB SCH ×6 (06:38→23:17)
[2023-02-06] MEDS: NAPROXEN 250 MG TAB PO SCH ×3 (08:28→22:13)
[2023-02-06] MEDS: ALPRAZolam 0.25 MG TAB PO SCH ×2 (08:28→21:37)
[2023-02-06] MEDS: NICOTINE 21MG/24HR PATCH TRANSDERM SCH (08:28)
[2023-02-06] MEDS: ENOXAPARIN 40 MG/0.4 ML SYRINGE SQ SCH (08:30)
[2023-02-06] MEDS ORDERED: DEXAMETHASONE SOD PHOSPHATE 4 MG/ML 1 ML VIAL IV ONE (14:01)
[2023-02-06] MEDS ORDERED: ONDANSETRON 4 MG/2 ML VIAL IVP ONE (14:01)
--- NOTE | 2023-02-06 14:48 | P.PN ---
Subjective Progress Note Date: 02/06/23 Patient is evaluated today up ambulating in the room. Reports that her facial swelling is slightly improved, has been started on IV decadron. Continues on IV pain medication. ID following and patient is on IV clindamycin and IV ceftriaxone. Dr. Easley plans to take the patient to the OR today for tooth extr action and extraoral I and D of the right jaw. Procal is negative. Hemodynamically she is stable. Review of Systems Constitutional: Denied any fatigue denied any fever. Cardio vascular: denied any chest pain, palpitations Gastrointestinal: denied any nausea, vomiting, diarrhea Pulmonary: Denied any shortness of breath cough Neurologic denied any new focal deficits All inpatient medications were reviewed and appropriate changes in these medications as dictated in the interval history and assessment and plan. PHYSICAL EXAMINATION: GENERAL: The patient is alert and oriented x3, not in any acute distress. Well developed, well nourished. HEENT: Pupils are round and equally reacting to light. EOMI. No scleral icterus. No conjunctival pallor. Normocephalic, atraumatic. No pharyngeal erythema. No thyromegaly. CARDIOVASCULAR: S1 and S2 present. No murmurs, rubs, or gallops. PULMONARY: Chest is clear to auscultation, no wheezing or crackles. ABDOMEN: Soft, nontender, nondistended, normoactive bowel sounds. No palpable organomegaly. MUSCULOSKELETAL: No joint swelling or deformity. EXTREMITIES: No cyanosis, clubbing, or pedal edema. NEUROLOGICAL: Gross neurological examination did not reveal any focal deficits. SKIN: Swelling and erythema of the right jaw and submandibular region over to midline. Assessment -Cellulitis and phlegmon to the anterior part of the right mandible. Patient has failed outpatient treatment with Z-Daryn 2 courses -COPD with no acute exacerbation -Chronic nicotine dependence, cigarette smoker -Depression -Hx gastroesophageal reflux disease -Chronic neck pain from prior cervical spine surgery and neck injections. -Hx Hyperlipidemia -Migraines GI prophylaxis protonix DVT prophylaxis with lovenox Full Code Plan Continue on IV antibiotics per infectious disease Scheduled to undergo I and D of the right jaw and tooth extraction of #27 and #[address] Easley Continue IV decadron Repeat labs in AM The impression and plan of care has been dictated by Krista Moreland, Nurse Practitioner as directed. Dr. Sienna MD I have performed a history and physical examination and medical decision making of this patient, discussed the same with the dictator, and agree with the dictators assessment and plan as written, documented as a scribe. Based on total visit time, I have performed more than 50% of this visit. Objective - Vital Signs Vital signs: Vital Signs Temp 98.2 F 02/06/23 07:48 Pulse 77 02/06/23 07:48 Resp 19 02/06/23 08:00 BP 118/74 02/06/23 07:48 Pulse Ox 92 L 02/06/23 07:48 FiO2 Intake & Output 02/05/23 02/06/23 02/06/23 18:59 06:59 18:59 Intake Total 330 Balance 330 Weight 90.718 kg Intake: Oral 330 Other: Voiding Method Toilet Toilet Toilet # Voids 1 2 - Labs CBC & Chem 7: 02/04/23 07:28 02/03/23 14:35 Labs: Microbiology - Last 24 Hours (Table) 02/03/23 18:13 Blood Culture - Preliminary Blood 02/03/23 18:30 Blood Culture - Preliminary Blood Assessment and Plan Time with Patient: Less than 30
[2023-02-06 15:31] LABS: Glucose,Whole Blood 132 mg/dL (70-110)
[2023-02-06] MEDS ORDERED: fentaNYL (PF) 50 MCG/ML 2 ML AMP ONE (15:31)
[2023-02-06] MEDS ORDERED: MIDAZOLAM 2 MG/2 ML VIAL ONE (15:31)
[2023-02-06] MEDS ORDERED: SUCCINYLCHOLINE CHLORIDE 200 MG/10 ML VIAL IV ONE (15:31)
[2023-02-06] MEDS ORDERED: LIDOCAINE 1% INJ 10MG/ML (20 ML MDV) ONE (15:31)
[2023-02-06] MEDS ORDERED: PROPOFOL 10 MG/ML 20 ML VIAL IV ONE (15:31)
[2023-02-06] MEDS ORDERED: IV FLUID CONTINUATION 1,000 ML IV ONE (15:32)
[2023-02-06] MEDS ORDERED: LIDOCAINE 2% (PF) 20 MG/ML 10 ML AMP SQ ONE (15:51)
[2023-02-06] MEDS: LACTATED RINGERS 1,000 ML IV SCH (16:26)
--- NOTE | 2023-02-06 16:33 | P.OP ---
Date of Procedure: 02/06/23 Preoperative Diagnosis: Dental abscess related to tooth #27 and 28 Hypoesthesia of the mandibular nerve on the right side Postoperative Diagnosis: Same Procedure(s) Performed: Extraoral drainage submental space with cultures and drain tube Surgical extraction of tooth #27 tooth #28 Implants: None Anesthesia: SEUN Surgeon: Sanya Easley Estimated Blood Loss (ml): 4 IV fluids (ml): 300 Urine output (ml): 0 Pathology: other (Culture and sensitivity right neck neck) Condition: stable Disposition: floor Indications for Procedure: Patient has been showing minimal improvent with IV antibotics. Her computed tomography scan on admission did not show any abscess but as time has progressed a feel there is something to drain. Her teeth in the area also hurt and the patient needs all of her teeth removed eventually so the decision to remove the 2 teeth near the intraoral swelling is easy decision. Suspect one or both of those teeth are related to the swelling is well. She also has some hypoesthesia of the mandibular nerve coming out of the mental foramen in the area of these 2 teeth. This did not respond to a few doses of Decadron antibiotics and I suspect that the infection has affected this nerve so the sooner this is treated the better her her nerve healing. Operative Findings: None Description of Procedure: Patient was seen in the preoperative holding area consent and rationale discussed with the patient including but not limited to bleeding pain infection and swelling. Also discussed was the lack of mandibular teeth for partial denture and the decision to soon be getting a complete lower denture. I suspect an upper denture is also in her near future and we discussed this as well. Patient only wanted the 2 teeth removed #27 and 28 due to their pain and proximity to the vestibular swelling in the area. CAT scan and numbness findings support #28 as the culprit that the patient feels tooth #27 is more painful to cut she no longer has a canine on the left side her prognosis with the lower partial denture having only tooth numbers 23,24/25/26 and 27 is poor I think the decision to maintain #27 has minimal benefit. o discussed bleeding postoperatively due to the patient not being able to stop her blood thinners and this I feel is low risk. patient was then taken to the operating room. She was prepped and draped in usual fashion for extraoral approach on the submental fold. 4 mL of lidocaine was administered in the skin and an incision was made through the skin approximately 1 cm the subcutaneous level. Blunt dissection was then utilized to get the abscess and approximately 4-5 mL of bloody pus came out through this area. This was cultured and a Cipriano drain was placed and secured to the inferior border the mandible. Care was taken not to dissect bluntly even posteriorly and order to aid in caution on the mental foramen. After this extraoral approach was done in a sterile manner patient's mouth was accessed throat pack bite block placed tooth numbers 27 and 28 were addressed with a small buccal flap small amount of bone luxated and delivered without difficulty and 1 4-0 chromic gut suture was placed to resecure the flap. Minimal bleeding was noted throat pack was removed posterior pharynx suctioned no teeth are debris were noted in the posterior pharynx.. The extraoral approach was dressed and the patient was then awakened extubated and taken to the postoperative care unit. She waits transfer to the floor and continued IV antibiotics with possible discharge tomorrow. If discharge the patient in follow-up in the office on Thursday for removal of the drain
[2023-02-06] MEDS: PANTOPRAZOLE 40 MG TABLET PO SCH (21:37)
[2023-02-06] MEDS: GABAPENTIN 300 MG CAP PO SCH (21:37)
[2023-02-06] MEDS: ASPIRIN 81 MG PO SCH (21:37)
[2023-02-06] MEDS: AMITRIPTYLINE HCL 25 MG TAB PO SCH (21:37)
[2023-02-06] MEDS: ATORVASTATIN 20 MG TAB PO SCH (21:37)
[2023-02-06] MEDS: VENLAFAXINE HCL ER 75 MG CAP PO SCH (21:38)
[2023-02-06] MEDS ORDERED: IBUPROFEN 800 MG TAB PO STA (22:05)
[2023-02-07] MEDS: HYDROmorphone 0.5 MG/0.5 ML SYRINGE IVP PRN ×3 (02:58→08:54)
[2023-02-07] MEDS: CLINDAMYCIN 900 MG in DEXTROSE 5% IN WATER 50 ML IVPB SCH ×6 (05:39→23:23)
[2023-02-07] MEDS: DEXAMETHASONE SOD PHOSPHATE 4 MG/ML 1 ML VIAL IVP SCH ×4 (05:39→23:24)
[2023-02-07 06:11] LABS: Basophils % (A) 0 %; Eosinophils # (A) 0.1 k/uL (0-0.7); Eosinophils % (A) 1 %; HCT 34.4 % (34.0-46.0); HGB 11.3 gm/dL (11.4-16.0); Lymphocytes # (A) 1.3 k/uL (1.0-4.8); Lymphocytes % (A) 11 %; MCH 29.4 pg (25.0-35.0); MCHC 32.9 g/dL (31.0-37.0); MCV 89.4 fL (80.0-100.0); Mean Platelet Volume 8.4; Monocytes # (A) 0.4 k/uL (0-1.0); Monocytes % (A) 3 %; Neutrophils # (A) 10.3 k/uL (1.3-7.7); Neutrophils % (A) 84 %; Platelet Count 319 k/uL (150-450); RBC 3.85 m/uL (3.80-5.40); WBC 12.2 k/uL (3.8-10.6)
[2023-02-07 06:20] LABS: African American GFR (CKD) >90 (>60 ml/min/1.73 sqM); Anion Gap 9 mmol/L; Blood Urea Nitrogen 20 mg/dL (7-17); Calcium 8.7 mg/dL (8.4-10.2); Carbon Dioxide 24 mmol/L (22-30); Chloride 106 mmol/L (98-107); Glucose 122 mg/dL (74-99); Non-African American GFR(CKD) >90 (>60 ml/min/1.73 sqM); Sodium 139 mmol/L (137-145)
[2023-02-07] MEDS ORDERED: HYDROmorphone 0.5 MG/0.5 ML SYRINGE IVP PRN (07:00)
[2023-02-07] MEDS: NICOTINE 21MG/24HR PATCH TRANSDERM SCH (08:40)
[2023-02-07] MEDS: NAPROXEN 250 MG TAB PO SCH (08:53)
[2023-02-07] MEDS: ENOXAPARIN 40 MG/0.4 ML SYRINGE SQ SCH (08:54)
--- NOTE | 2023-02-07 13:08 | P.PN ---
Subjective Progress Note Date: 02/07/23 Patient is evaluated today up ambulating in the room. Reports that her facial swelling is slightly improved, has been started on IV decadron. Continues on IV pain medication. ID following and patient is on IV clindamycin and IV ceftriaxone. Dr. Easley plans to take the patient to the OR today for tooth extr action and extraoral I and D of the right jaw. Procal is negative. Hemodynamically she is stable. 02/07/2023 Patient is evaluated today sitting up in bed. Postoperative day #1 tooth extraction of #27 and #28 on the right lower jaw. Swelling is improved today. Remains on high dose IV decadron. Remains on IV clindamycin and IV ceftriaxone. Recommend to begin weaning pain medication. Patient does want to go home today. Pending ID recommendations. Review of Systems Constitutional: Denied any fatigue denied any fever. Cardio vascular: denied any chest pain, palpitations Gastrointestinal: denied any nausea, vomiting, diarrhea Pulmonary: Denied any shortness of breath cough Neurologic denied any new focal deficits All inpatient medications were reviewed and appropriate changes in these medi cations as dictated in the interval history and assessment and plan. PHYSICAL EXAMINATION: GENERAL: The patient is alert and oriented x3, not in any acute distress. Well developed, well nourished. HEENT: Pupils are round and equally reacting to light. EOMI. No scleral icterus. No conjunctival pallor. Normocephalic, atraumatic. No pharyngeal erythema. No thyromegaly. CARDIOVASCULAR: S1 and S2 present. No murmurs, rubs, or gallops. PULMONARY: Chest is clear to auscultation, no wheezing or crackles. ABDOMEN: Soft, nontender, nondistended, normoactive bowel sounds. No palpable organomegaly. MUSCULOSKELETAL: No joint swelling or deformity. EXTREMITIES: No cyanosis, clubbing, or pedal edema. NEUROLOGICAL: Gross neurological examination did not reveal any focal deficits. SKIN: Swelling and erythema of the right jaw and submandibular region over to midline. Assessment -Cellulitis and phlegmon to the anterior part of the right mandible. Patient has failed outpatient treatment with Z-Daryn 2 courses status post tooth extraction #27 and #28. -COPD with no acute exacerbation -Chronic nicotine dependence, cigarette smoker -Depression -Hx gastroesophageal reflux disease -Chronic neck pain from prior cervical spine surgery and neck injections. -Hx Hyperlipidemia -Migraines GI prophylaxis protonix DVT prophylaxis with lovenox Full Code Plan Continue on IV antibiotics per infectious disease S/P I and D of the right jaw and tooth extraction of #27 and #[address] Easley Continue IV decadron Wean pain medication to orals. The impression and plan of care has been dictated by Krista Moerland, Nurse Practitioner as directed. Dr. Sienna MD I have performed a history and physical examination and medical decision making of this patient, discussed the same with the dictator, and agree with the dictators assessment and plan as written, documented as a scribe. Based on total visit time, I have performed more than 50% of this visit. Objective - Vital Signs Vital signs: Vital Signs Temp 98.4 F 02/07/23 07:13 Pulse 69 02/07/23 08:00 Resp 18 02/07/23 08:00 BP 132/68 02/07/23 07:13 Pulse Ox 95 02/07/23 07:13 FiO2 Intake & Output 02/06/23 02/07/23 02/07/23 18:59 06:59 18:59 Intake Total 506 Output Total 4 Balance 502 Weight 90.718 kg Intake: IV 506 Output: Estimated Blood Loss 4 Other: Voiding Method Toilet Toilet Toilet # Voids 0 2 - Labs CBC & Chem 7: 02/07/23 05:49 02/07/23 05:49 Labs: Abnormal Lab Results - Last 24 Hours (Table) 02/06/23 02/07/23 02/07/23 Range/Units 15:29 05:49 05:49 WBC 12.2 H (3.8-10.6) k/uL Hgb 11.3 L (11.4-16.0) gm/dL Neutrophils # 10.3 H (1.3-7.7) k/uL BUN 20 H (7-17) mg/dL Glucose 122 H (74-99) mg/dL POC Glucose (mg/dL) 132 H (70-110) mg/dL Microbiology - Last 24 Hours (Table) 02/05/23 23:00 Gram Stain - Preliminary Mouth Wound Culture - Preliminary 02/03/23 18:13 Blood Culture - Preliminary Blood 02/03/23 18:30 Blood Culture - Preliminary Blood Assessment and Plan Time with Patient: Less than 30
[2023-02-07] MEDS: KETOROLAC 15 MG/ML 1 ML VIAL IVP PRN ×2 (14:24→23:39)
[2023-02-07] MEDS: LACTATED RINGERS 1,000 ML IV SCH (14:30)
[2023-02-07] MEDS: Acetaminophen-Codeine 300-30mg TAB PO PRN ×2 (14:40→20:57)
[2023-02-07] MEDS: ALPRAZolam 0.25 MG TAB PO SCH ×2 (15:30→20:48)
[2023-02-07] MEDS: SODIUM CHLORIDE 0.9% 1,000 ML IV SCH ×2 (15:56→23:37)
[2023-02-07] MEDS: GABAPENTIN 300 MG CAP PO SCH (20:49)
[2023-02-07] MEDS: ASPIRIN 81 MG PO SCH (20:49)
[2023-02-07] MEDS: ATORVASTATIN 20 MG TAB PO SCH (20:49)
[2023-02-07] MEDS: PANTOPRAZOLE 40 MG TABLET PO SCH (20:49)
[2023-02-07] MEDS: AMITRIPTYLINE HCL 25 MG TAB PO SCH (20:49)
[2023-02-07] MEDS: VENLAFAXINE HCL ER 75 MG CAP PO SCH (20:50)
--- NOTE | 2023-02-08 00:24 | P.PN ---
Subjective Progress Note Date: 02/06/23 Principal diagnosis: Right lower jaw infection and facial cellulitis Patient is a 57-year-old female with a past medical history significant for DVT PE current everyday smoker history of recurrent dental infection presenting to the hospital for evaluation of right-sided facial swelling and pain , failing outpatient oral Zithromax therapy CT did show some soft tissue swelling and some low density fluid collection On today's evaluation that is02/06/2023, the patient remains to be afebrile, the patient is breathing comfortably on room air and denies any shortness of breath, the patient denies any chest pain or cough, patient denies nausea/vomiting or diarrhea and no abdominal pain, the patient to the right side of the jaw and the facial area has slightly decreased in intensity Patient white count of 12.96 as of 02/04/23 , no cbc today Objective - Vital Signs Vital signs: Vital Signs Temp 98.2 F 02/06/23 07:48 Pulse 77 02/06/23 07:48 Resp 19 02/06/23 08:00 BP 118/74 02/06/23 07:48 Pulse Ox 92 L 02/06/23 07:48 FiO2 Intake & Output 02/05/23 02/06/23 02/06/23 18:59 06:59 18:59 Intake Total 330 Balance 330 Intake: Oral 330 Other: Voiding Method Toilet Toilet Toilet # Voids 1 2 - Exam GENERAL DESCRIPTION: A middle-aged female lying in bed in no distress HEENT: Right lower jaw with swelling redness and tenderness RESPIRATORY SYSTEM: Unlabored breathing , clear to auscultation anteriorly HEART: S1 S2 regular rate and rhythm , ABDOMEN: Soft , no tenderness EXTREMITIES: No edema feet - Labs CBC & Chem 7: 02/07/23 05:49 02/07/23 05:49 Labs: Microbiology - Last 24 Hours (Table) 02/03/23 18:13 Blood Culture - Preliminary Blood 02/03/23 18:30 Blood Culture - Preliminary Blood Assessment and Plan (1) Penicillin allergy Current Visit: Yes Status: Acute Code(s): Z88.0 - ALLERGY STATUS TO PENICILLIN SNOMED Code(s): 15444257 (2) Facial cellulitis Current Visit: Yes Status: Acute Code(s): L03.211 - CELLULITIS OF FACE SNOMED Code(s): 960138370 Plan: 1patient presented to hospital with increasing pain swelling redness to the right side of the jaw failing outpatient oral Zithromax therapy likely related to underlying lower jaw infected tooth and secondary cellulitis and will need to cover for the polymicrobial naeem associated with his infection 2-penicillin allergy that will limit the number of antibiotics safe to use 3-Pt has been evaluated by dental surgery evaluation and frias for drainage and ex traction of teeth this afternoon 3-patient to continue with clindamycin to 900 mg every 8 hours and Rocephin 2 g daily, monitor clinical course closely Dictation was produced using [employer] dictation software. please excuse any grammatical, word or spelling errors. Time with Patient: Less than 30
--- NOTE | 2023-02-08 00:28 | P.PN ---
Subjective Progress Note Date: 02/07/23 Principal diagnosis: Right lower jaw infection and facial cellulitis Patient is a 57-year-old female with a past medical history significant for DVT PE current everyday smoker history of recurrent dental infection presenting to the hospital for evaluation of right-sided facial swelling and pain , failing outpatient oral Zithromax therapy CT did show some soft tissue swelling and some low density fluid collection, Pt is S/P Extraoral drainage submental space with cultures and drain tube ,Surgical extraction of tooth #27 tooth #28 ON 02/06/23 On today's evaluation that is 02/07/2023, the patient CONTINUES to be afebrile, the patient is breathing comfortably on room air and denies chest pain or cough, patient denies nausea/vomiting or diarrhea and no abdominal pain, the patient to the right side of the jaw and the facial area has slightly decreased in intensity Patient white count of 12.02 , Cr is 0.63 Objective - Vital Signs Vital signs: Vital Signs Temp 98.4 F 02/07/23 07:13 Pulse 69 02/07/23 08:00 Resp 18 02/07/23 08:00 BP 132/68 02/07/23 07:13 Pulse Ox 95 02/07/23 07:13 FiO2 Intake & Output 02/06/23 02/07/23 02/07/23 18:59 06:59 18:59 Intake Total 506 Output Total 4 Balance 502 Weight 90.718 kg Intake: IV 506 Output: Estimated Blood Loss 4 Other: Voiding Method Toilet Toilet Toilet # Voids 0 2 - Exam GENERAL DESCRIPTION: A middle-aged female lying in bed in no distress HEENT: Right lower jaw with swelling redness and tenderness RESPIRATORY SYSTEM: Unlabored breathing , clear to auscultation anteriorly HEART: S1 S2 regular rate and rhythm , ABDOMEN: Soft , no tenderness EXTREMITIES: No edema feet - Labs CBC & Chem 7: 02/07/23 05:49 02/07/23 05:49 Labs: Abnormal Lab Results - Last 24 Hours (Table) 02/06/23 02/07/23 02/07/23 Range/Units 15:29 05:49 05:49 WBC 12.2 H (3.8-10.6) k/uL Hgb 11.3 L (11.4-16.0) gm/dL Neutrophils # 10.3 H (1.3-7.7) k/uL BUN 20 H (7-17) mg/dL Glucose 122 H (74-99) mg/dL POC Glucose (mg/dL) 132 H (70-110) mg/dL Microbiology - Last 24 Hours (Table) 02/05/23 23:00 Gram Stain - Preliminary Mouth Wound Culture - Preliminary 02/03/23 18:13 Blood Culture - Preliminary Blood 02/03/23 18:30 Blood Culture - Preliminary Blood Assessment and Plan (1) Penicillin allergy Current Visit: Yes Status: Acute Code(s): Z88.0 - ALLERGY STATUS TO PENIC ILLIN SNOMED Code(s): 99551158 (2) Facial cellulitis Current Visit: Yes Status: Acute Code(s): L03.211 - CELLULITIS OF FACE SNOMED Code(s): 382031912 Plan: 1patient presented to hospital with increasing pain swelling redness to the right side of the jaw failing outpatient oral Zithromax therapy likely related to underlying lower jaw infected tooth and secondary cellulitis and will need to cover for the polymicrobial naeem associated with his infection 2-penicillin allergy that will limit the number of antibiotics safe to use 3-Pt has been evaluated by dental surgery evaluation and is s/p Extraoral drainage submental space with cultures and drain tube ,Surgical extraction of tooth #27 tooth #28 ON 02/06/23 3-patient to continue with clindamycin to 900 mg every 8 hours and Rocephin 2 g daily while waiting for cultures to finalize , will need IV antibiotics on DC , discussed with medical team BUSINESS SERVICES DIRECTOR Dictation was produced using [employer] dictation software. please excuse any grammatical, word or spelling errors. Time with Patient: Less than 30
[2023-02-08] MEDS: CLINDAMYCIN 900 MG in DEXTROSE 5% IN WATER 50 ML IVPB SCH ×2 (06:50)
[2023-02-08] MEDS: DEXAMETHASONE SOD PHOSPHATE 4 MG/ML 1 ML VIAL IVP SCH ×2 (06:50→12:53)
[2023-02-08 07:46] VITALS: BP 174/84; PULSE 65; RESP 15; TEMP 98
[2023-02-08] MEDS: NICOTINE 21MG/24HR PATCH TRANSDERM SCH (08:37)
[2023-02-08] MEDS: ENOXAPARIN 40 MG/0.4 ML SYRINGE SQ SCH (08:37)
[2023-02-08] MEDS: ALPRAZolam 0.25 MG TAB PO SCH (09:11)
--- NOTE | 2023-02-08 12:03 | P.PN ---
Progress Note - Text Progress Note Date: 02/08/23 S: Patient's every 6 hours postoperative extraoral incision and drainage with cultures as well as extraction of teeth numbers 27 and 28. Patient reports feeling much better and requests to go home. Patient does report numbness of the lower lip the 3 this is not improved despite infection improving. Patient's pain is much improved. O: Patient's swelling extraorally is much reduced. Slight inflammation still around the drain. Intraoral vestibular swelling is almost gone and the wounds on teeth numbers 2728 are closed. Patient's opening her mouth normally no floor of mouth swelling no trouble eating or swallowing. Pain much improved. Drain has put out minimal over the last 12 hours. A/P Abscess right mandible much improved with extraction of teeth and natural drain. Continue current antibiotic therapy added Diflucan based on preliminary Gram stain. Remove the drain today and follow-up in 1 week. Hypoesthesia of the right mandibular nerve. Unchanged as abscess resolved. Possible prolonged healing due to infection within the nerve. Okay to taper steroids at this time steroids will most likely not change outcome.
[2023-02-08] MEDS ORDERED: FLUCONAZOLE 150 MG TAB PO SCH (12:30)
--- NOTE | 2023-02-08 14:40 | P.PN ---
Subjective Progress Note Date: 02/08/23 Principal diagnosis: Right lower jaw infection and facial cellulitis Patient is a 57-year-old female with a past medical history significant for DVT PE current everyday smoker history of recurrent dental infection presenting to the hospital for evaluation of right-sided facial swelling and pain , failing outpatient oral Zithromax therapy CT did show some soft tissue swelling and some low density fluid collection, Pt is S/P Extraoral drainage submental space with cultures and drain tube ,Surgical extraction of tooth #27 tooth #28 ON 02/06/23 On today's evaluation that is 02/08/2023, the patient denies any fever or any chills, the patient is breathing comfortably on room air and no need for supplemental oxygen, the patient denies any chest pain and no cough or sputum production, patient denies Abdominal pain and no nausea/vomiting or diarrhea , the patient to the right side of the jaw and the facial area has decreased in intensity and the patient insisting on going home Patient white count of 12.02 , Cr is 0.63 as of yesterday no lab draw today Objective - Vital Signs Vital signs: Vital Signs Temp 98.0 F 02/08/23 07:39 Pulse 65 02/08/23 08:00 Resp 15 02/08/23 08:00 BP 174/84 02/08/23 07:39 Pulse Ox 94 L 02/08/23 07:39 FiO2 Intake & Output 02/07/23 02/08/23 02/08/23 19:59 06:59 18:59 Other: Voiding Method Toilet # Voids # Bowel Movements - Exam GENERAL DESCRIPTION: A middle-aged female lying in bed in no distress HEENT: Right lower jaw with swelling redness and tenderness RESPIRATORY SYSTEM: Unlabored breathing , clear to auscultation anteriorly HEART: S1 S2 regular rate and rhythm , ABDOMEN: Soft , no tenderness EXTREMITIES: No edema feet - Labs CBC & Chem 7: 02/07/23 05:49 02/07/23 05:49 Labs: Microbiology - Last 24 Hours (Table) 02/05/23 23:00 Gram Stain - Final Mouth Wound Culture - Final Holly albicans 02/06/23 16:01 Gram Stain - Preliminary Neck Wound Culture - Preliminary 02/06/23 16:01 Gram Stain - Preliminary Neck Wound Culture - Preliminary Assessment and Plan (1) Penicillin allergy Status: Acute Code(s): Z88.0 - ALLERGY STATUS TO PENICILLIN SNOMED Code(s): 90327290 (2) Facial cellulitis Status: Acute Code(s): L03.211 - CELLULITIS OF FACE SNOMED Code(s): 169531651 Plan: 1patient presented to hospital with increasing pain swelling redness to the right side of the jaw failing outpatient oral Zithromax therapy likely related to underlying lower jaw infected tooth and secondary cellulitis and will need to cover for the polymicrobial naeem associated with his infection 2-penicillin allergy that will limit the number of antibiotics safe to use 3-Pt has been evaluated by dental surgery evaluation and is s/p Extraoral drainage submental space with cultures and drain tube ,Surgical extraction of tooth #27 tooth #28 ON 02/06/23 3-patient has shown clinical improvement patient has been advised to stay in the hospital another 24 hours so outpatient IV antibiotics can be arranged for the patient however the patient refused and has been insisting on going home he will consider oral Ceftin and Flagyl on discharge and close outpatient follow-up this was discussed with CHILD DEVELOPMENT CONSULTANT for admitting team working on discharge Dictation was produced using [employer] dictation software. please excuse any grammatical, word or spelling errors. Time with Patient: Less than 30
--- NOTE | 2023-02-09 19:31 | P.DS ---
Providers Date of admission: 02/05/23 10:15 Attending physician: Gil Marrufo Consults: 02/03/23 17:37 Consult Physician Urgent Consulting Provider: Sanya Easley Consult Reason/Comments: facial cellulitis w/ phlegmon Do you want consulting provider notified?: Yes Consult Physician Urgent Consulting Provider: Rinku Baron Consult Reason/Comments: facial cellulitis w/ phlegmon. failure outpt tx Do you want consulting provider notified?: Yes Primary care physician: Barbara He Hospital Course: Final Diagnosis -Cellulitis and phlegmon to the anterior part of the right mandible. Patient has failed outpatient treatment with Z-Daryn 2 courses status post tooth extraction #27 and #28. -COPD with no acute exacerbation -Chronic nicotine dependence, cigarette smoker -Depression -Hx gastroesophageal reflux disease -Chronic neck pain from prior cervical spine surgery and neck injections. -Hx Hyperlipidemia -Migraines GI prophylaxis protonix DVT prophylaxis with lovenox Full Code Discharge Disposition Patient is stable for discharge home. Has been cleared by Dr Easley and would like to see the patient in the office in 1 week on 02/16/23. Dr Easley removed the surgical drain prior to discharge. Patients facial and intraoral swelling has decreased significantly. Partient does continue with complaints of numbness of the right mandible this is attributed to infection within the nerve and this may be a prolonged healing process. She is discharged on prednisone taper and to continue with same pain management regimen as prior. Patient will continue diflucan for 3 addtional days. Infectious disease recommending 10 days of oral ceftin and oral flagyl. Follow up with Dr Baron, Dr Easley and PCP Dr He. Repeat labs in 2 to 3 days. Hospital Course Pleasant 57-year-old patient who follows with Dr. Barbara He. Chronic stable medical conditions include depression, GERD, chronic neck pain, insomnia, hyperlipidemia, migraines. Prior pulmonary embolism, finished a course of eliquis now on aspirin. Approximately 2 weeks ago started noticing swelling on the right side of the face around the jawline. Progressively became worse. Went to see her dentist. Was given a Z-Daryn. Did not improve. Went back again was again given a Z-Daryn. Then she went to see maxillofacial surgeon who recommended patient come to the ER. Denies any fever and chills. Was having some trouble eating. ID and maxillofacial surgery surgery was consulted from the ER. Soft tissue neck CT showings swelling over the right side of the jaw, cellulitis and phlegmon. Patient had evidence of abscess along the right mandible with purulent drainage which was cultured. ID started antibiotics and was started on decadron for the swelling. Pain management in place. Had elevated white count of 15.4. Patient was taken for for extraoral incision and drainage with cultures and extraction of teeth number 27 and 28. Her swelling is much improved and patient not having any trouble eating. The surgical drain has been removed. As above still reports some numbness to the lip this may take time to recover. Patient requires close follow up on discharge. She is asking to go home. No fever, chills, no shortness of breath, no chest pain. Please see medication reconciliation for a list of current medications. Thank you for allowing us to participate in the care of this patient. The impression and plan of care has been dictated by Krista Moreland, Nurse Practitioner as directed. Dr. Sienna MD I have performed a history and physical examination and medical decision making of this patient, discussed the same with the dictator, and agree with the dictators assessment and plan as written, documented as a scribe. Based on total visit time, I have performed more than 50% of this visit. Patient Condition at Discharge: Good Plan - Discharge Summary New Discharge Prescriptions: New cefUROXime axetiL [Ceftin] 500 mg PO BID 10 Days #20 tab metroNIDAZOLE [Flagyl] 500 mg PO TID 10 Days #30 tab Fluconazole [Diflucan] 150 mg PO DAILY #3 tab Continue Acetaminophen Tab [Tylenol] 500 mg PO Q6HR PRN PRN Reason: Pain Ubrogepant [Ubrelvy] 100 mg PO DAILY PRN PRN Reason: Migraine Headache SUMAtriptan succinate [Imitrex] 100 mg PO BID PRN PRN Reason: Migraine Headache ALPRAZolam [Xanax] 0.25 mg PO BID Atorvastatin [Lipitor] 20 mg PO HS Acetaminophen-Codeine 300-30mg [Tylenol w/codeine #3] 1 tab PO Q6H PRN #10 tab PRN Reason: Pain Ibuprofen [Motrin] 800 mg PO TID PRN PRN Reason: Pain Venlafaxine HCl [Effexor XR] 225 mg PO HS Omeprazole 40 mg PO HS Gabapentin 600 mg PO HS Amitriptyline HCl [Elavil] 75 mg PO HS Aspirin EC [Ecotrin Low Dose] 81 mg PO HS Discharge Medication List ALPRAZolam [Xanax] 0.25 mg PO BID 02/03/23 [History] Acetaminophen Tab [Tylenol] 500 mg PO Q6HR PRN 02/03/23 [History] Amitriptyline HCl [Elavil] 75 mg PO HS 02/03/23 [History] Aspirin EC [Ecotrin Low Dose] 81 mg PO HS 02/03/23 [History] Atorvastatin [Lipitor] 20 mg PO HS 02/03/23 [History] Gabapentin 600 mg PO HS 02/03/23 [History] Ibuprofen [Motrin] 800 mg PO TID PRN 02/03/23 [History] Omeprazole 40 mg PO HS 02/03/23 [History] SUMAtriptan succinate [Imitrex] 100 mg PO BID PRN 02/03/23 [History] Ubrogepant [Ubrelvy] 100 mg PO DAILY PRN 02/03/23 [History] Venlafaxine HCl [Effexor XR] 225 mg PO HS 02/03/23 [History] Acetaminophen-Codeine 300-30mg [Tylenol w/codeine #3] 1 tab PO Q6H PRN #10 tab 02/08/23 [Rx] Fluconazole [Diflucan] 150 mg PO DAILY #3 tab 02/08/23 [Rx] cefUROXime axetiL [Ceftin] 500 mg PO BID 10 Days #20 tab 02/08/23 [Rx] metroNIDAZOLE [Flagyl] 500 mg PO TID 10 Days #30 tab 02/08/23 [Rx] Follow up Appointment(s)/Referral(s): Sanya Easley DDS [STAFF PHYSICIAN] - 1 Week (please call tomorrow for an appointment. Dr Aguirre be at the office in [place] [phone] on 02/09/23) Barbara He DO [Primary Care Provider] - 1-2 days (please call for an appointment ) Rinku Baron MD [STAFF PHYSICIAN] - 1 Week (please call tomorrow for an appointment ) Ambulatory/Diagnostic Orders: Basic Metabolic Panel [LAB.AMB] Location: None Selected Complete Blood Count w/diff [LAB.AMB] Time Frame: 3 Days, Location: None Selected Patient Instructions/Handouts: Dental Abscess (GEN), Toothache (GEN), Mouth Care (DC) Activity/Diet/Wound Care/Special Instructions: Continue antibiotics for the next 10 days Continue on tylenol #3's and motrin for pain management Diet as tolerated Follow up with Dr Easley in the office in one week from Thursday. Discharge Disposition: HOME SELF-CARE
== END 2023-02-08 14:02 | disposition home or self-care (01) | DRG 159 ==
LOC: EC 13:47 → 6NMEDSUR 16:48 → OBSVTOIN 02-05 10:15
PROVIDERS: ADMIT Hospitalist; ATTEND Hospitalist
PROC: 0C9X000 Drainage of Lower Tooth with Drainage Device, Open Approach, Single (ICD-10-PCS; principal; 2023-02-06 11:10)
PROC: 0CDXXZ1 Extraction of Lower Tooth, Multiple, External Approach (ICD-10-PCS; principal; 2023-02-06 11:10)
DX: K12.2 Cellulitis and abscess of mouth (principal); K04.7 Periapical abscess without sinus; E78.5 Hyperlipidemia, unspecified; Z60.2 Problems related to living alone; G43.909 Migraine, unspecified, not intractable, without status migrainosus; F17.210 Nicotine dependence, cigarettes, uncomplicated; F32.A Depression, unspecified; G47.00 Insomnia, unspecified; R20.1 Hypoesthesia of skin; G89.29 Other chronic pain; G89.18 Other acute postprocedural pain; M54.2 Cervicalgia; J44.9 Chronic obstructive pulmonary disease, unspecified; Z86.711 Personal history of pulmonary embolism; Z79.01 Long term (current) use of anticoagulants; Z79.82 Long term (current) use of aspirin; Z79.899 Other long term (current) drug therapy; Z88.0 Allergy status to penicillin; Z86.718 Personal history of other venous thrombosis and embolism; K59.00 Constipation, unspecified; K21.9 Gastro-esophageal reflux disease without esophagitis
CPT/HCPCS: 36415; 70491; 80048; 80053; 84145; 85025; 87040; 87070; 87075; 87205; 96361; 96365; 96366; 96367; 96375; 96376; 99285